=== PATIENT | female | born 1980 | race Caucasian/White ===

== ENCOUNTER 2018-04-10 08:48 | Emergency (ER) | payer BC ==
[2018-04-10] MEDS ORDERED: diphenhydrAMINE 50 MG/ML 1 ML VIAL IVP STA (08:57)
[2018-04-10] MEDS ORDERED: KETOROLAC 30 MG/ML 1 ML VIAL IVP STA (08:57)
[2018-04-10] MEDS ORDERED: METOCLOPRAMIDE 5 MG/ML 2 ML VIAL IVP STA (08:57)
[2018-04-10] MEDS ORDERED: SODIUM CHLORIDE 0.9% 1,000 ML IV ONE (08:58)
--- NOTE | 2018-04-10 08:59 | ED ---
Headache HPI - General Chief Complaint: Headache Stated Complaint: Headaches Time Seen by Provider: 04/10/18 08:52 Source: RN notes reviewed Mode of arrival: ambulatory Limitations: no limitations - History of Present Illness Initial Comments: 37-year-old female presents emergency Department with chief complaint of migraine headache. Patient states started yesterday. She did try some Excedrin but was unable to keep it down. Patient has nausea and vomiting. Denies fever, chills, dizziness, blurred vision, neck pain or neck stiffness. Patient states that she has a history of migraines and this is very typical for. Patient denies any chest pain or shortness of breath. Patient has normal drug ALLERGIES. Denies any other significant past medical history. - Related Data Home Medications Medication Instructions Recorded Confirmed No Known Home Medications 04/10/18 04/10/18 Allergies Allergy/AdvReac Type Severity Reaction Status Date / Time No Known Allergies Allergy Verified 04/10/18 09:01 Review of Systems ROS Statement: Those systems with pertinent positive or pertinent negative responses have been documented in the HPI. ROS Other: All systems not noted in ROS Statement are negative. Past Medical History Additional Past Medical History / Comment(s): migraines History of Any Multi-Drug Resistant Organisms: None Reported Past Surgical History: Section, Cholecystectomy Additional Past Surgical History / Comment(s): D&C Past Psychological History: No Psychological Hx Reported Smoking Status: Never smoker Past Alcohol Use History: None Reported Past Drug Use History: None Reported General Exam Limitations: no limitations General appearance: alert, in no apparent distress Head exam: Present: atraumatic, normocephalic, normal inspection Eye exam: Present: normal appearance, PERRL, EOMI. Absent: scleral icterus, conjunctival injection, periorbital swelling ENT exam: Present: normal exam, normal oropharynx, mucous membranes moist, TM's normal bilaterally, normal external ear exam Neck exam: Present: normal inspection, full ROM. Absent: tenderness, meningismus, lymphadenopathy Respiratory exam: Present: normal lung sounds bilaterally. Absent: respiratory distress, wheezes, rales, rhonchi, stridor Cardiovascular Exam: Present: regular rate, normal rhythm, normal heart sounds. Absent: systolic murmur, diastolic murmur, rubs, gallop, clicks Neurological exam: Present: alert, oriented X3, CN II-XII intact, reflexes normal, other (Finger to nose intact bilaterally without over shooting). Absent : motor sensory deficit Skin exam: Present: warm, dry, intact, normal color. Absent: rash Course Vital Signs 04/10/18 08:50 Temperature 97.5 F L Pulse Rate 77 Respiratory 18 Rate Blood Pressure 130/86 O2 Sat by Pulse 100 Oximetry - Reevaluation(s) Reevaluation #1: 04/10/18 10:35 Patient reevaluated. Patient states her headache is resolved current pain 0-10 patient neurologically intact Medical Decision Making - Medical Decision Making 37-year-old female presented for headache. Patient's headache has resolved after migraine cocktail. Patient is neurologically intact and will be discharged. Disposition Clinical Impression: Migraine Disposition: HOME SELF-CARE Condition: Stable Instructions (If sedation given, give patient instructions): Acute Headache (ED ) Additional Instructions: Please return to the Emergency Department if symptoms worsen or any other concerns. Is patient prescribed a controlled substance at d/c from ED?: No Referrals: Nohelia Moura MD [Primary Care Provider] - 1-2 days Time of Disposition: 10:35
[2018-04-10 10:50] VITALS: BP 115/77; PULSE 84; RESP 16; TEMP 98
== END 2018-04-10 10:49 | disposition home or self-care (01) ==
LOC: EC 08:48
DX: G43.909 Migraine, unspecified, not intractable, without status migrainosus (principal)
CPT/HCPCS: 99283; 96374; 96375 ×2; 96361; J1200; J2765; J1885